=== PATIENT | female | born 2005 | race Two or more races ===

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

== ENCOUNTER 2025-06-18 19:38 | Emergency (ER) | payer MEDICAID ==
[2025-06-18 19:59] VITALS: PULSE 75
[2025-06-18 21:27] VITALS: BP 111/71
== END 2025-06-18 21:18 | disposition home or self-care (01) ==
LOC: JD.ED 19:38
DX: O9A.212 Injury, poisoning and certain other consequences of external causes complicating pregnancy, second trimester (principal); S99.921A Unspecified injury of right foot, initial encounter; J45.909 Unspecified asthma, uncomplicated; Z86.16 Personal history of COVID-19; Z90.49 Acquired absence of other specified parts of digestive tract; Z88.0 Allergy status to penicillin; Z88.8 Allergy status to other drugs, medicaments and biological substances; Z79.899 Other long term (current) drug therapy; W20.8XXA Other cause of strike by thrown, projected or falling object, initial encounter; Z3A.21 21 weeks gestation of pregnancy
CPT/HCPCS: 73660-26-T5; 73660-T5; 99283